=== PATIENT | male | born 1960 | race Caucasian/White ===

== ENCOUNTER → 2020-01-06 09:57 | Outpatient (CLI) | payer SELFPAY ==
[2020-01-06 12:27] LABS: Absolute Lymphocyte Count 2.34 X10^3/uL (0.83-4.51); Basophil# 0.07 X10^3/uL; Basophil% 1.2 % (0-1); Eosinophil# 0.19 X10^3/uL; Eosinophils% 3.2 % (0-5); Erythrocyte Sedimentation Rate < 1 mm/hr (0-20); Hematocrit 46.3 % (40-54); Hemoglobin 16.2 g/dL (13.0-16.5); Lymphocyte # 2.34 X10^3/ul (4.0); Lymphocyte % 38.9 % (19-41); Mean Corpuscular Hgb 31.6 pg (27.0-32.0); Mean Corpuscular Volume 90.3 fL (80-94); Mean Platelet Vol. 8.8 fl (6.2-12.0); Monocyte# 0.44 X10^3/uL; Monocyte% 7.3 % (0-10); NRBC Flagged by Analyzer 0 % (0-5); Neutrophil # 2.97 X10^3/uL (2.7-7.7); Neutrophil % 49.2 % (47-70); Platelet Count 224 K/mm3 (150-450); RBC Distribution Width CV 13.2 % (11.6-14.6); RBC Distribution Width SD 43.3 fl (35.1-43.9); Red Blood Count 5.13 M/mm3 (4.6-6.2)
[2020-01-06 12:30] LABS: ALB/GLOB Ratio 1.3 RATIO (0.9-2.4); AST(SGOT) 24 U/L (15-37); Alanine Aminotransfer ALT/SGPT 41 U/L (16-61); Alkaline Phosphatase 69 U/L (45-117); Anion Gap 5 (5-15); BUN 16 mg/dL (7-18); BUN/Creat Ratio 20.6 RATIO (10-20); CRP < 2.90 mg/L (0.0-3.0); Calcium,Total 8.9 mg/dL (8.5-10.1); Chloride 104 mmol/L (98-107); Creatinine, Serum 0.78 mg/dL (0.70-1.30); EST Glomerular Filtration Rate 109 mL/min (>60); Est Glom Filt Rate - Afr Amer 132 mL/min (>60); Glucose 95 mg/dL (74-106); Potassium 3.8 mmol/L (3.5-5.1); Rheumatoid Factor < 10.0 IU/mL (<15); Sodium Level 137 mmol/L (136-145)
[2020-01-06 12:55] LABS: Hepatitis B Surface Antibody Non-Reactive; Hepatitis B Surface Antigen Non-Reactive (Nonreactive); Hepatitis C Antibody Non-Reactive (Nonreactive)
[2020-01-06 15:06] LABS: Color, Urine Yellow (Yellow); Glucose, Dipstick Normal (Normal); Ketone-Dipstick Negative (Negative); Leukocyte Esterase-Dipstick Negative /ul (Negative); Nitrite-Dipstick Negative (Negative); Occult Blood-Urine Negative /ul (Negative); Protein-Dipstick Negative (Negative); Specific Gravity, Urine 1.015 (1.002-1.030); Urine Bilirubin Dipstick Negative (Negative); Urine Clarity Clear (Clear); Urine Urobilinogen Normal (Normal); Urine pH 6.5 (5.0 - 8.0)
[2020-01-06 15:15] LABS: Protein, Urine (Random) 11.1 mg/dL (<11.9); Protein:Creat Ratio 95 mg/g CRE (0-200)
[2020-01-07 14:42] LABS: ANTINUCLEAR ANTIBODIES DIRECT Negative (Negative)
[2020-01-09 04:26] LABS: CCP IgG Antibodies 5 units (0-19); Hepatitis B Core AB IgM Negative (Negative)
== END ==
PROVIDERS: Referring Provider Internal Medicine Rheumatology; Visit Provider Internal Medicine Rheumatology
DX: M06.4 Inflammatory polyarthropathy (principal); M35.2 Behcet's disease; H54.62 Unqualified visual loss, left eye, normal vision right eye; Q66.70 Congenital pes cavus, unspecified foot
CPT/HCPCS: 36415; 80053; 81002; 82570; 84156; 85025; 85652; 86038; 86140; 86200; 86431; 86705; 86706; 86803; 87340

== ENCOUNTER → 2023-01-10 | Outpatient (CLI) | payer SELFPAY, OTHER ==
--- NOTE | 2023-01-10 08:09 | MRI_ITS ---
STUDY: MR PELVIS WITH T WITHOUT CONTRAST REASON FOR EXAM: Male, 62 years old. ELEVATED PSA 12/26/22 14.03 -- PSA 12/26/22 14.03 TECHNIQUE: Standardized fat and water weighted pulse sequences were obtained in all 3 orthogonal planes, pre-and post contrast administration. Diffusion imaging obtained with ADC. 17CC IV CLARISCAN was administered for the contrast portion of the examination. COMPARISON: None. FINDINGS: Prostate 4.9 x 3.8 x 4.0 cm (39ml). Mild diffuse central gland enlargement with heterogeneous T2 signal. No overt diffusion restriction. Peripheral zone is mildly heterogeneous on T2 without discrete hypointense lesion. No focal diffusion restriction is seen. Heterogeneous enhancement with scattered areas of mild linear hyperenhancement. Retroprostatic angles are normal in appearance. Unremarkable seminal vesicles. Bladder is nondistended with normal wall signal. No adenopathy is appreciated within the imaged pelvis. Small fat-containing inguinal hernias with trace amount of fluid in the left inguinal canal. No acute osseous finding. MRI/Pelvis W/WO Contrast IMPRESSION: Prostatic enlargement without focal suspicious mass, overall PI-RADS 2 Electronically Signed: Samuel Guillen MD at 10:15 EDT ,
[2023-01-10 08:48] LABS: CREATININE FINGERSTICK < 0.9 mg/dL (0.70-1.30); EGFR FINGERSTICK > 60.0000 mL/min (>60)
== END | disposition home or self-care (01) ==
PROVIDERS: PCP Family Medicine; Referring Provider Urology; Visit Provider Urology
DX: R97.20 Elevated prostate specific antigen [PSA] (principal)
CPT/HCPCS: 72197; A9575

== ENCOUNTER → 2023-07-10 | Outpatient (CLI) | payer OTHER, SELFPAY ==
--- NOTE | 2023-07-10 | IMM_PTH ---
PATHOLOGY RESULTS PATIENT: LORI MULLEN LOC: [facility] U#:[id number] AGE/SX: 63/M ROOM: RE07/10/[address]: Dr. Mihai Sesay MD : 1960 BED: DIS: 07/10/2023 SPEC #: [id number] RECD: 07/12/23 14:01 STATUS: MARANDA REQuinn #: [id number] MAYE: 07/10/23 00:[address]: Mihai Sesay DEPT: IMMUNOHISTOCHEMISTRY RECD BY: Tatiana Queen ENTERED: 07/12/23 14:02 SP TYPE: IMMUNO OTHR DR: Dr. Musa Bingham, Tissues: PROSTATE RIGHT PROSTATE LEFT Procedures: 34BE12 (add) P40 (add) 34BE12 (initial) PHYSICIAN & INSTITUTION [place] [id number] SPECIMEN INFORMATION: Tissue Source: C - Right prostate, base, core biopsy, E - Left prostate, mid, core biopsy Clinical Info: Elevated PSA Specimen Number: [id number] C & E CPT code: 98861, 55192 x3 METHODOLOGY: Deparaffinized sections of prefer/formalin-fixed tissue or PAP/DQ stained slides are incubated with monoclonal/polyclonal antibodies/oligonucleotide probes. Localization is made via biotin free immunoperoxidase method. Appropriate controls are performed and reacted as expected. Results on target cell population are indicated in the following table: RESULTS: ANTIBODY / CLONE RESULT Block C P40 (BC28) negative, focal 34BE12 (34BE12) negative, focal Block E P40 (BC28) negative, focal 34BE12 (34BE12) negative, focal These tests were developed and their performance characteristics determined by [facility]. They may not have been cleared or approved by the U.S. Food and Drug Administration. The FDA has determined that such clearance or approval is not necessary. The above immunohistochemical/dualISH markers are ordered and reviewed by the Pathologist. INTERPRETATION: C. Right prostate, base, core biopsy: Consistent with focal atypical small acinar proliferation. E. Left prostate, mid, core biopsy: Consistent with focal atypical small acinar proliferation. AM:alan 07/13/2023
--- NOTE | 2023-07-10 | PROSBIL_PTH ---
PATHOLOGY RESULTS PATIENT: LORI MULLEN LOC: [facility] U#:[id number] AGE/SX: 63/M ROOM: RE07/10/[address]: Dr. Mihai Sesay MD : 1960 BED: DIS: 07/10/2023 SPEC #: [id number] RECD: 07/11/23 09:56 STATUS: MARANDA [place] #: [id number] MAYE: 07/10/23 00:[address]: Mihai Sesay DEPT: SURGICAL PATHOLOGY RECD BY: Denae Doyle ENTERED: 07/11/23 09:57 SP TYPE: PROST BX HUGH DR: Dr. Musa Bingham DO Tissues: PROSTATE RIGHT PROSTATE RIGHT PROSTATE RIGHT PROSTATE LEFT PROSTATE LEFT PROSTATE LEFT Procedures: PROSTATE BX HEADER OPERATION: Prostate biopsy PRE-OP DIAGNOSIS: Elevated PSA TISSUE SUBMITTED: A - Right apex, B - Right mid, C - Right base, D - Left apex, E - Left mid, F - Left base MICROSCOPIC DIAGNOSIS A. Right prostate, apex, core biopsy: Adenocarcinoma. [place] grade: 7 (3+4) Cores involved: 2 out of 2 cores Tissue involved: 55% Greatest tumor length: 8.5 millimeters B. Right prostate, mid, core biopsy: Focal high-grade prostatic intraepithelial neoplasia (HGPIN). Glandular atrophy and minimal chronic inflammation. C. Right prostate, base, core biopsy: Focal atypical small acinar proliferation. See comment. D. Left prostate, apex, core biopsy: Benign prostatic tissue. E. Left prostate, mid, core biopsy: Focal atypical small acinar proliferaton Mild chronic inflammation with focal acute inflammation. See comment. F. Left prostate, base, core biopsy: Focal high-grade prostatic intraepithelial neoplasia (HGPIN). Mild chronic inflammation. AM:alan 07/12/2023 COMMENT C & E. Immunohistochemistry ([id number]) supports the above diagnosis. Case has been reviewed in consultation with Dr. Lind who concurs with the above diagnosis. IDC:AM MICROSCOPIC DESCRIPTION Slides are reviewed. GROSS DESCRIPTION A - Received is one container designated prostate, right apex. The specimen consists of two elongated fragments of light davis-white soft tissue measuring 1.2 and 1.4 cm in length and 0.1 cm in diameter. The specimen is totally submitted in one cassette. B - Received is one container designated prostate, right mid. The specimen consists of two elongated fragments of light davis-white soft tissue measuring 1.0 and 2.0 cm in length and 0.1 cm in diameter. The specimen is totally submitted in one cassette. C - Received is one container designated prostate, right base. The specimen consists of two elongated fragments of light davis-white soft tissue measuring 0.8 and 1.2 cm in length and 0.1 cm in diameter. The specimen is totally submitted in one cassette. D - Received is one container designated prostate, left apex. The specimen consists of one elongated fragment of light davis-white soft tissue measuring 0.7 cm in length and 0.1 cm in diameter. The specimen is totally submitted in one cassette. E - Received is one container designated prostate, left mid. The specimen consists of two elongated fragments of light davis-white soft tissue measuring 0.6 and 0.8 cm in length and 0.1 cm in diameter. The specimen is totally submitted in one cassette. F - Received is one container designated prostate, left base. The specimen consists of two elongated fragments of light davis-white soft tissue measuring 0.7 and 1.0 cm in length and 0.1 cm in diameter. The specimen is totally submitted in one cassette. / SJ:rg 07/11/2023 TC:0 CPT: 62108 x6
== END | disposition home or self-care (01) ==
LOC: LABSPEC 16:08
PROVIDERS: PCP Family Medicine; Referring Provider Urology; Visit Provider Urology
DX: C61 Malignant neoplasm of prostate (principal); N42.89 Other specified disorders of prostate
CPT/HCPCS: 88305; 88341; 88342; G0416

== ENCOUNTER → 2023-07-20 | Outpatient (CLI) | payer SELFPAY, OTHER ==
--- NOTE | 2023-07-20 07:43 | NM_ITS ---
CLINICAL: 63-year-old male with history of primary prostate carcinoma. WHOLE BODY 99m Tc MDP RADIONUCLIDE BONE SCINTIGRAPHY COMPARISON: CT of the abdomen-pelvis report 07/20/2023 FINDINGS: Following the intravenous administration of 25.3 mCi of 99m Tc MDP, whole body bone images reveal: 1. Increased tracer uptake is defined in the acromioclavicular and sternoclavicular compartments of both shoulders, the bilateral elbows, the right knee, both hands. 2. The remaining skeletal structures are scintigraphically unremarkable with normal-appearing renal images and urinary bladder activity identified. NM/Bone Scan Whole Body IMPRESSION: 1. The increase in radiotracer defined in the bilateral shoulder and elbow articulations, the right knee, the hands bilaterally is commensurate with degenerative arthrosis. 2. There is no definitive scintigraphic evidence of diffuse axial skeletal metastatic disease on the current examination. Electronically Signed: Moody Kenny DO at 10:25 EST ,
--- NOTE | 2023-07-20 12:17 | CT_ITS ---
EXAM: CT ABDOMEN AND PELVIS WITH INTRAVENOUS CONTRAST CLINICAL INDICATION: Malignant neoplasm of prostate TECHNIQUE: Helically acquired images were obtained of the abdomen and pelvis with intravenous contrast. This CT exam was performed using one or more of the following dose reduction techniques: automated exposure control, adjustment of the mA and/or kV according to patient size, and/or use of iterative reconstruction technique. CONTRAST: isovue 370 100 ml COMPARISON: No relevant prior studies available. FINDINGS: LOWER THORAX: Unremarkable. Lung bases are clear. No cardiomegaly. No significant pericardial effusion. ABDOMEN: LIVER: Unremarkable. Homogeneous. No focal mass. GALLBLADDER AND BILE DUCTS: Unremarkable. No calcified gallstones. No gallbladder distention or wall edema. No intra- or extrahepatic biliary ductal dilation. PANCREAS: Unremarkable. No focal cystic or solid mass. SPLEEN: Unremarkable. Normal size without focal cystic or solid mass. ADRENALS: Unremarkable. No nodules. KIDNEYS AND URETERS: Unremarkable. Normal renal size and position. No hydronephrosis. STOMACH AND BOWEL: Unremarkable. No stomach or bowel distention. No focal inflammatory change. PELVIS: APPENDIX: No evidence of acute appendicitis. BLADDER: Unremarkable. REPRODUCTIVE: Unremarkable as visualized. No mass. ABDOMEN and PELVIS: INTRAPERITONEAL SPACE: Unremarkable. No ascites or other fluid collection. No free air. BONES/JOINTS: Unremarkable. No suspicious lytic or blastic abnormality. SOFT TISSUES: Unremarkable. No discrete abdominal or pelvic wall hernia. VASCULATURE: Unremarkable. Abdominal aorta is normal in caliber. LYMPH NODES: Unremarkable. No enlarged lymph nodes. CT/Abdomen/Pelvis W IV Cont ONLY IMPRESSION: Negative CT of the abdomen and pelvis with intravenous contrast. Electronically Signed: Johanny Dey MD at 19:08 EST Reading Location ID and State: [id number] / Tel , Service support ,
[2023-07-20 12:51] LABS: CREATININE FINGERSTICK < 1.0 mg/dL (0.70-1.30); EGFR FINGERSTICK > 60.0000 mL/min (>60)
== END | disposition home or self-care (01) ==
PROVIDERS: PCP Family Medicine; Referring Provider Urology; Visit Provider Urology
DX: C61 Malignant neoplasm of prostate (principal)
CPT/HCPCS: 74177; 78306; A9503; Q9967

== ENCOUNTER 2023-08-29 05:50 | Day surgery (SDC) | payer SELFPAY, OTHER ==
--- NOTE | 2023-08-23 12:18 | EKG12_ITS ---
Test Reason : PRE-OP Blood Pressure : / mmHG Vent. Rate : 056 BPM Atrial Rate : 056 BPM P-R Int : 180 ms QRS Dur : 096 ms QT Int : 402 ms P-R-T Axes : 050 -25 043 degrees QTc Int : 387 ms Sinus bradycardia Otherwise normal ECG Confirmed by JOSE CARLSON, CONOR ([id number]), photo editor MAE LOCO ([id number]) on 08/24/2023 6:18:08 AM Referred By: Mihai Sesay Confirmed By:CONOR GARCIA MD
[2023-08-23 13:22] LABS: Hematocrit 47.6 % (40-54); Hemoglobin 16.3 g/dL (13.0-16.5); Mean Corp Hgb Conc 34.2 g/dL (32-36); Mean Corpuscular Hgb 30.4 pg (27.0-32.0); Mean Corpuscular Volume 88.6 fL (80-94); Mean Platelet Vol. 8.7 fl (6.2-12.0); Platelet Count 249 K/mm3 (150-450); RBC Distribution Width CV 12.9 % (11.6-14.6); RBC Distribution Width SD 41.7 fl (35.1-43.9); Red Blood Count 5.37 M/mm3 (4.6-6.2); White Blood Count 6.6 K/mm3 (4.4-11.0)
[2023-08-29] VITALS (14 sets, daily range): BP systolic 90–117; BP diastolic 52–73; PULSE 52–75; RESP 15–18; TEMP 36.1–36.7; O2SAT 95–99; BMI 28.3; BMI 28.1
--- NOTE | 2023-08-29 | PROST_PTH ---
PATIENT: LORI MULLEN [place] [facility][id number] AGE/SX: 63/M ROOM: RE08/29/[address]: Dr. Mihai Sesay MD : 1960 BED: DIS: 08/30/2023 SPEC #: [id number] RECD: 08/29/23 13:14 STATUS: MARANDA [place] #: [id number] MAYE: 08/29/23 00:[address]: Mihai Sesay DEPT: SURGICAL PATHOLOGY RECD BY: Jack Gale ENTERED: 08/29/23 13:14 SP TYPE: PROSTATE OTHR DR: Dr. Musa Bingham DO Tissues: A - Lymph node of pelvis, NOS B - Lymph node of pelvis, NOS C - Prostate, NOS Procedures: Surgery Specimen Level V Surgery Specimen Level HEADER OPERATION: Laparoscopic robotic radical prostatectomy PRE-OP DIAGNOSIS: Prostate cancer TISSUE SUBMITTED: A- right pelvic lymph node, B- Left pelvic lymph node, C- Prostate MICROSCOPIC DIAGNOSIS A. Right pelvic lymph node, regional resection: One lymph node, negative for metastatic carcinoma. B. Left pelvic lymph node, regional resection: Six out of six lymph node negative for metastatic carcinoma. C. Prostate, radical prostatectomy: Prostatic adenocarcinoma. See cancer summary in comment section. COMMENT PROSTATE CANCER (RADICAL) SUMMARY: Procedure: Radical Prostatectomy Prostate Size: Weight: 48.9 gm Size: 4.5 cm transversely, 3.5 cm anterior-posteriorly and 3.5 cm craniocaudally Histologic Type: Adenocarcinoma Histologic Grade: Grade group - 3, [place] score (4+3=7) Tertiary Pattern: 5 Intraductal Carcinoma: Not identified Tumor Quantitation: Estimated percentage of prostate involved by tumor: ~10% Tumor size: The tumor involves apical, mid and basal portions of the right prostate lobe and measures approximately 3.0 x 1.3 x 1.2 cm (measured microscopically). The tumor is present in discontinuous manner. Left lobe of prostate shows focal high grade prostatic intraepithelial neoplasia (HGPIN). Extraprostatic Extension: Not identified Urinary Bladder Neck Invasion: Not identified Seminal Vesicle Invasion: Not identified Lymphvascular Invasion: Not identified Perineural Invasion: Present, frequent Margins: Margin involved by invasive carcinoma Size of positive margin: 1.0 x 0.8cm Focality - unifocal. Location of positive margin- Right apical Gelasian pattern in the positive margin- Pattern 4+3=7 Regional Lymph Nodes: Number of lymph nodes involved by carcinoma: 0 Total number of lymph nodes examined: 7 Treatment Effect: No know presurgical therapy Additional Pathologic Findings: - Focal high-grade prostatic intraepithelial neoplasia (HGPIN). - Benign prostatic hyperplasia. Clinical History: Please make reference to previous specimen ([id number]) right prostate apex, core biopsy with diagnosis of adenocarcinoma and right prostate mid with diagnosis of Focal high-grade prostatic intraepithelial neoplasia (HGPIN) and right prostate base with diagnosis of focal atypical small acinar proliferation (KINA) and left prostate mid with diagnosis of Focal atypical small acinar proliferation (KINA) and left prostate base with diagnosis of Focal high-grade prostatic intraepithelial neoplasia (HGPIN). PATHOLOGIC STAGE: pT2 pN0 pMx The above summary is in compliance with [employer] (CAP) Cancer Protocols Checklist and [place] [employer] Committee on Cancer (AJCC), Staging Manual, 8th Ed. Case has been reviewed in consultation with Dr. Lind who concurs with the above diagnosis. IDC:AM MICROSCOPIC DESCRIPTION Slides are reviewed. GROSS DESCRIPTION A. Received in fixative is one container labeled with the patient's name and designated Right pelvic lymph node. The specimen consists of a piece of adipose tissue measuring 2.5 x 2.0 x 1.0cm. One nodule consistent with possible lymph node is identified. The specimen is dissected and submitted entirely in two cassettes. [facility] 08/29/23 B. Received in fixative is one container labeled with the patient's name and designated Left pelvic lymph node. The specimen consists of a piece of adipose tissue measuring 3.0 x 2.5 x 0.5cm. One possible lymph node is identified. The entire specimen is submitted in two cassettes as follows: 1- one lymph node, 2- rest of the specimen. [facility] 08/29/23 C. Received in fixative is one container labeled with the patient's name and designated Prostate. The specimen consists of a radical prostatectomy specimen consisting of prostate and bilateral seminal vesicles and vas deferens. The specimen weighs 48.9 gm. The prostate measures 4.5 cm transversely, 3.5 cm anterior-posteriorly and 3.5 cm craniocaudally. The right seminal vesicle measures 2.5 x 1.0 x 0.5 cm. The left seminal vesicle measures 3.0 x 1.5 x 0.5 cm. Vas deferens are not identified grossly. The prostate is inked as follows: anterior surface - yellow, posterior surface - black, right lateral surface - blue, left lateral surface - green. The bilateral seminal vesicles and vas deferens are inked as follows: Posterior surface bilateral seminal vesicle and vas deferens - black, anterior surface right seminal vesicle and vas deferens - blue and anterior left seminal vesicle and vas deferens - green. Sections do not reveal any obvious mass lesions. Forming Process Line Worker sections are submitted in 19 cassettes as follows: 1 - right seminal vesicle, 2 - left seminal vesicle, 3 - apical (urethral) margin, enface, 4&5 - bladder neck and basal portion of prostate margin, enface, 6-9 - apical portion prostate, 10-13 - middle portion prostate, 14-19 - basal portion prostate. IMELDA: 08/30/23 TC:0 CPT: 32341, 13579 x2
[2023-08-29] MEDS: Lactated Ringers 1,000 ML 15 ML IV (06:49)
[2023-08-29] MEDS: Cefazolin 2 GM in 0.9% Normal Saline (100mL Bag) 100 ML IV (07:40)
[2023-08-29] MEDS: Bupivacaine Mpf 0.5% 30 ML VIAL (11:03)
--- NOTE | 2023-08-29 11:19 | PCM.HP.STD ---
HPI - General General Date of Admission: 08/29/23 HPI Narrative LORI MULLEN, is a 63 M who presents presents for a radical prostatectomy [facility] Medical History (Updated 08/29/23 @ 11:[address] Mihai Sesay MD) Behcet's disease Cancer Former smoker Prostate disease Wears dentures Wears glasses Wears hearing aid Home Medications leucovorin calcium 5 mg tablet 5 mg PO TU 08/21/23 [History Last Taken 08/28/23] methotrexate sodium 2.5 mg tablet 12.5 mg PO MO 08/21/23 [History Last Taken 08/27/23] ciprofloxacin HCl 500 mg tablet (Cipro) 500 mg PO BID #14 tabs 08/29/23 [Rx Last Taken Unknown] docusate sodium 100 mg capsule (Colace) 100 mg PO BID #20 caps 08/29/23 [Rx Last Taken Unknown] oxycodone 5 mg tablet 5 mg PO Q6H PRN pain 7 days #14 tabs 08/29/23 [Rx Last Taken Unknown] Allergy/AdvReac Type Severity Reaction Status Date / Time No Known Allergies Allergy Verified 08/29/23 06:17 Surgical History (Updated 08/21/23 @ 15:10 by Ronda Mays) Hx of eye surgery Hx of prostate biopsy Social History Smoking Status: Former smoker Vital Signs Vital Signs Vital Signs: 08/29/23 06:17 08/29/23 06:17 Temperature 97.2 F L Temperature Source Temporal Pulse Rate 55 L Respiratory Rate 16 Respiratory Pattern Normal Blood Pressure 117/67 Blood Pressure Mean 83 Blood Pressure Source Monitor Blood Pressure Position Semi-Fowlers Blood Pressure Location Right Arm Pulse Ox 97 Oxygen Delivery Method Room Air Weight Weight: 87 kg Body Mass Index (BMI) 28.3 Results Lab / Micro Data 08/23/23 12:34
--- NOTE | 2023-08-29 11:20 | OP.PCM_ITS ---
Report of Operation Date of Procedure: 08/29/23 Pre-Operative Diagnosis: Prostate cancer Post-Operative Diagnosis: The same Surgery/Procedure Performed:: Laparoscopic robotic assisted radical prostatectomy with bilateral pelvic lymph node dissection, suture suspension of the urethra Description of Surgical Findings:: Patient presented to the hospital for treatment of his prostate cancer with radical prostatectomy. In the preoperative setting we discussed the options of management for his prostate cancer including active surveillance, radiation treatments, radioactive seeds, and radical robotic prostatectomy. We discussed the side effects of surgery including the potential to lose erections. We discussed the potential to have bladder control problems with stress incontinence which can be temporary or permanent. We discussed the risk of the surgery including the risk of general anesthetic, risk of bleeding, risk of infection, and risk of formation of hernia either incisional hernia or inguinal hernia. After long discussion with the patient the preoperative setting and also reviewed this in the preop area patient signed the consent form and we proceeded with a radical prostatectomy. Patient was taken back to the operating room he was identified, time out procedure was performed and he was placed supine on the table he underwent general anesthesia with intubation. The abdomen was shaved prepped and draped in usual sterile fashion as well as the penis and testicles. A 16 Ecuadorean catheter was placed into the bladder with clear return of urine. I then made an incision in the umbilicus and dissected down to the fascia advance a Veress needle into the peritoneal cavity and insufflated the peritoneal cavity with CO2 gas. I then placed a 12 mm trocar above the umbilicus. I then visualized the placement of the rest of the trochars, I placed a right arm robotic trocar, and air seal trocar, a suction port 5 mm trocar. And on the left side I placed 2 robotic arms. Once all the trochars were in placed the patient was put in steep Trendelenburg. And the robot was docked the arms were docked and then I placed the 0 degree camera through the robotic arm and also used a 30 degree camera during certain parts of the case. I used scissors in the right arm, prograsp in the third arm, and a bipolar in the second arm. Initial dissection was to free the sigmoid colon off the lateral wall this was done by meticulously dissecting off the peritoneum and the sigmoid colon off the left lateral wall. This then allowed the prograsp to retract the sigmoid colon out of the pelvis. I then went below the bladder and identified the vas deferens incised the peritoneum over the vas deferens and traced the vas deferens below the bladder to the prostate and identified the right and left vasa deferens. Below behind the vas deferens then the seminal vesicles were identified. I then dissected the seminal vesicle free using pinpoint electrocautery and then we identified the other seminal vesicle and then dissected this using pinpoint electrocautery I then elevated the vas deferens and several vesicles off the prostate and was able to sweep the Denonvilliers' fascia off the prostate posteriorly all the way up to the apex of the prostate. Working laterally I made sure I went as lateral as possible to sweep the Denonilliers' fascia off the posterior aspect of the prostate and worked my way back, I then transected the vas deferens and the left and right side the seminal vesicles were then dissected free. And then I pulled out of the pelvis. At this point the bladder was dropped creating the space of Retzius with the bladder on traction with the fourth arm. Using electrocautery I dissected in the anterior peritoneal fascia and then created the space of Retzius dissecting towards the prostate. The pelvic lymph node dissection was then performed both side. Rhe right pelvic lymph nodes the nodes that were taken on the right side extended from the right iliac artery lateral pelvic sidewall up to the junction of the artery and the lymph nodes and down to the obturator nerve and then also below the extractor operator helper nerve all the lymph nodes were removed during to remove those lymph nodes we used clips and electrocautery to control small blood vessels and also the control lymphatic. I then went to the left side and again did an extensive lymph node dissection starting of the left iliac artery extending the left iliac vein on the lateral sidewall down to the obturator nerve and the left side beyond the extractor operator helper nerve down further behind it cleaning out all the lymphatic tissue all this tissue was sent off as a specimen we use clips and electrocautery during the dissection. At the end we cleaned out all the lymphatic tissue on the right pelvic wall and all the lymphatic tissue in the left pelvic wall. The prostate was then cleaned of the fat over the prostate and the fourth arm was used to retract the bladder and place traction. I then identified the endopelvic fascia that was overlying the prostate on the right side I incised endopelvic fascia and wwept the levator muscles off the prostate all the way to the apex on the right side, I then worked my way anterior to the prostate then transected to the puboprostatic ligament and the underlying dorsal vein complex was not injured. I then went to the other side and identified the endopelvic fascia in the left side incised in a fashion the left side and swept the levator muscles off the prostate on the left side all the way up to the apex the puboprostatic ligament on the left side was then dissected and transected I then freed up the fascia overlying the dorsal vein complex. I then used the prograsp to encircled the dorsal vein complex with the prograsp and then switched over to the right and left needle cdl flatbed truck driver and suture ligated the dorsal vein complex above the prograsp. The prograsp was then placed back in the bladder and put back on traction I then identified the junction between the bladder and the prostate and dissected down between the bladder and the prostate untilI came across the catheter we then dissected posteriorly to the bladder and prostate to free the prostate and the bladder off each other and the muscles between the bladder and the prostate was then cauterized to free up the bladder. I then went on top of the prostate and identified the endopelvic fascia on top of the prostate this was incised all the way to the apex and then we swept the endopelvic fascia off the prostate laterally and then identified the plane between endopelvic fascia and the prosthetic pseudocapsule and swept the fascia laterally until reaching the course of the neurovascular bundles and then released the neurovascular bundles off the prostate laterally all the way back in a retrograde fashion back to the junction of the pedicles then the prostate was placed on traction with the fourth arm pulling the prostate laterally identified the pedicle to the prostate between the seminal vesicles and the and the neurovascular bundle and this was taken using sequential small hemolocks. After the pedicle was taken the I then dissected underneath the prostate sweeping the neurovascular bundle off the prostate we able to follow the nice smooth plane between the neurovascular bundle and the pseudocapsule all the way to the apex once this was identified we swept this up all the way up to the apex and there was perfect nerve sparing on the right side. Then went to the left side the prostate identified the endopelvic fascia over the left side of the prostate I incised the endopelvic fascia all the way to the apex and then swept this off laterally I then released the neurovascular bundles on the left side of the prostate sweeping him off the prostate laterally I then elevated the prostate up up with the prostate and traction identified the pedicle to the prostate on the left side and then the pedicles taken with sequential Hem-o-sil clips I then was able to dissected the neurovascular bundle off the left pos terior aspect the prostate this was a perfect dissection all the way up on the left side following the pseudocapsule all the way up the left side until we reached the apex of the prostate. After the both the neurovascular bundles has been swept off the posterior to the prostate I then went above and transected the dorsal vein complex there was minimal to no bleeding but then dissected down to the urethra and circumfencial dissected around the urethra I then switched the right and left arm with the needle drivers and I suture-ligated the dorsal vein complex again just to ensure that there was no bleeding from the dorsal vein complex. I then transected through the urethra with scissors and the prostate was then freed and released off the prostate bed and put an Endo Catch bag. At this point the bladder neck was reconstructed and then an anastomosis was performed between the prostate and the bladder with a 3 oh V-Loc stitch in a running fashion starting from the bladder neck at the 6 o'clock position working to the 12 o'clock position with continuous stitches to complete a perfect anastomosis between the bladder and the prostate. I then placed a new catheter into the bladder, an 18 [place]cu[place] tip catheter flushed the bladder and there was no leakage from the anastomosis I put 10 cc in the balloon and pulled it up pulled back gently. I then ensured that there was no bleeding from the dorsal vein complex no bleeding from the neurovascular bundles FloSeal was placed as necessary once hemostasis was ensured and adequate then I placed the bladder back in position in the pelvis the prostate was exchanged to the camera port I closed the air seal port with a 10 12 Tristian Reynolds stitch. And the extracted the prostate through the umbilicus. The robot was undocked all the ports were removed under direct visualization then closed the extraction site with 0 Vicryl with a CT1 needle once the extraction site was closed. I then closed all the incision with subcuticular stitches with 4-0 Monocryl and then bandages were placed on the incisions catheter was flushed to make sure it was draining well there was no clots and it was crystal clear patient's anesthetic was reversed he was extubated and taken back to the PACU in stable condition all the needles and sponges and instruments were accounted for. Blood loss was minimal and the drain was a 18 Ecuadorean Curtis catheter. No other surgical drain was left. I was present during the entire case. Surgeon: Mihai Sesay Type of Anesthesia: General Drains: 18 Ecuadorean catheter [place] tip Estimated Blood Loss (mL): 350 cc Admit VTE Documentation VTE Present on Admission: No VTE Mechan Device Prophylaxis: SCD's VTE Pharm Prophylaxis ordered?: No
--- NOTE | 2023-08-29 11:20 | PCM.DC ---
Discharge Instructions Diet Discharge Diet: No restrictions Activity Discharge Activity: Return to Normal Activity and May Not Drive (while taking narcotic pain medications.) Dressing / Incision Call your doctor if you observe: Fever of 101 or Higher Cleanse incision/area with: Soap & Water Catheter: Curtis to leg bag and Curtis to large bag Drain: [place] Follow Up Care Please Follow Up With: Mihai Sesay MD When: Call [phone] for an appointment Test Results: Test results from this visit will be discussed in further detail at your follow-up appointment, if applicable. Discharge Plan Admission Primary Reason for Your Visit: Radical prostatectomy Attending Provider: Mihai Sesay Primary Care Provider: Musa Bingham Discharge Orders/Prescriptions Prescriptions: New ciprofloxacin HCl [Cipro] 500 mg tablet 500 mg PO BID Qty: 14 0RF docusate sodium [Colace] 100 mg capsule 100 mg PO BID Qty: 20 0RF oxycodone 5 mg tablet 5 mg PO Q6H PRN (Reason: pain) 7 Days Qty: 14 0RF Continued methotrexate sodium 2.5 mg tablet 12.5 mg PO MO leucovorin calcium 5 mg tablet 5 mg PO TU Referrals / Follow Up: Mihai Sesay MD [Med Staff - Active Staff] - Musa Bingham DO [Primary Care Provider] - Disposition Disposition (needs filled in before D/C Order can be placed): Home, Self Care
[2023-08-29] MEDS: Lactated Ringers 1,000 ML 125 ML IV (13:16)
[2023-08-29] MEDS: Ketorolac 15 MG/ML Vial IV ×2 (13:17→18:27)
[2023-08-29] MEDS: Ciprofloxacin 400 MG/200 ML BAG 200 MG IV (15:08)
--- NOTE | 2023-08-29 15:51 | CHAPLAIN ---
Type of Pastoral Visit _x__ Initial Visit ___ Follow-up Visit ___ On-call Visit ___ General Patient Visit ___ Spiritual Assessment ___ Family Conference ___ Bereavement ___ Rapid Response ___ Code Blue ___ Other (describe below) Pastoral Care Referral From _x__ Patient ___ Family ___ Nurse ___ Physician ___ Business Liaison Officer ___ Thermite Bomb Loader ___ Other (describe below) Sacrament/Intervention _x__ Active listening ___ Anointing ___ Muslim ___ Bereavement ___ Communion _x__ Fiona exploration ___ _x__ Life review _x__ Prayer ___ Reconciliation ___ Sacrament of Sick _x__ Supportive presence ___ Wedding ___ Other (describe below) Pastoral Comments post op for patient; spouse is with him; pt admits to some concerns because my father had surgeries and it affected his mind afterwards; pt is relieved that I seem to be thinking clearly and do okay; pt needed assistance with his alarm on IV and RN was called for help; pt gives some life review and speaks of friends that are known in common; pt is welcoming of spiritual care and prayer; no other needs at this time
[2023-08-29] MEDS: Docusate Sodium 100 MG Capsule 200 MG PO (21:36)
[2023-08-30] MEDS: Lactated Ringers 1,000 ML 125 ML IV (00:11)
[2023-08-30] MEDS: Ketorolac 15 MG/ML Vial IV ×2 (00:11→06:25)
[2023-08-30 00:15] VITALS: BP 101/67; PULSE 55; RESP 15; TEMP 36.5; O2SAT 95
[2023-08-30 01:00] VITALS: RESP 15
[2023-08-30 04:08] VITALS: BP 114/62; PULSE 70; RESP 15; TEMP 36.6; O2SAT 95
[2023-08-30] MEDS: Ciprofloxacin 400 MG/200 ML BAG 200 MG IV (04:14)
[2023-08-30 07:15] VITALS: O2SAT 95
[2023-08-30 07:21] VITALS: BP 103/53; PULSE 56; RESP 18; TEMP 36.6; O2SAT 99
--- NOTE | 2023-08-30 07:21 | PCM.PN.GU ---
Subjective Subjective 63-year-old male status post robotic radical prostatectomy doing well up reading a newspaper pain is under control he can go home later this morning after he has had breakfast he can stay till after lunch but he has a son and daughter coming and wants to go home early which is fine so we will discharge him today. Follow-up in 2 weeks he will go home with a Curtis catheter to leg bag Objective Data Objective Data Vital Signs: Vital Signs Temp Pulse Resp BP Pulse Ox O2 Del Method O2 Flow Rate 97.8 F 70 15 114/62 95 Room Air 2 08/30/23 04:08 08/30/23 04:08 08/30/23 04:08 08/30/23 04:08 08/30/23 04:08 08/30/23 06:46 08/29/23 11:45 Oxygen Flow Rate (L/min) 2 Oxygen Delivery Method Room Air Weight: 83.915 kg Body Mass Index (BMI) 28.1 Intake & Output: Intake and Output for Last 24 Hours 08/28/23 08/29/23 08/30/23 23:59 23:59 23:59 Intake Total 2710 / 2710 1150 / 1150 Output Total 1150 / 1150 200 / 200 Balance 1560 / 1560 950 / 950 Lab / Micro Data 08/23/23 12:34
[2023-08-30 08:05] LABS: Hematocrit 37.3 % (40-54); Hemoglobin 13.3 g/dL (13.0-16.5); Mean Corp Hgb Conc 35.7 g/dL (32-36); Mean Corpuscular Hgb 31.6 pg (27.0-32.0); Mean Corpuscular Volume 88.6 fL (80-94); Mean Platelet Vol. 8.9 fl (6.2-12.0); Platelet Count 202 K/mm3 (150-450); RBC Distribution Width SD 42.2 fl (35.1-43.9); Red Blood Count 4.21 M/mm3 (4.6-6.2); White Blood Count 10.5 K/mm3 (4.4-11.0)
[2023-08-30] MEDS: Docusate Sodium 100 MG Capsule 200 MG PO (08:29)
[2023-08-30 08:32] LABS: Anion Gap 6 (5-15); BUN 16 mg/dL (7-18); BUN/Creat Ratio 20.2 RATIO (10-20); Calcium,Total 8.7 mg/dL (8.5-10.1); Chloride 107 mmol/L (98-107); Creatinine, Serum 0.79 mg/dL (0.70-1.30); EST Glomerular Filtration Rate 105 mL/min (>60); Est Glom Filt Rate - Afr Amer 127 mL/min (>60); Glucose 108 mg/dL (74-106); Potassium 3.8 mmol/L (3.5-5.1); Sodium Level 138 mmol/L (136-145)
--- NOTE | 2023-08-30 10:08 | CASEMGMT ---
BELLA CM into pt room, pt sitting on couch with at bedside. Pt states he feels comfortable with going home with the owens. Pt reports he is I in ADL's. He denies any homegoing needs.
== END 2023-08-30 10:48 | disposition home or self-care (01) ==
LOC: SDC 05:51 → AC 05:52 → MS3 12:30
PROVIDERS: Anesthesiology; PCP Family Medicine; Referring Provider Urology; Visit Provider Urology
PROC: 0VT04ZZ Resection of Prostate, Percutaneous Endoscopic Approach (ICD-10-PCS; CPT 55866; principal; 2023-08-29 07:10)
DX: C61 Malignant neoplasm of prostate (principal); Z87.891 Personal history of nicotine dependence; Z80.42 Family history of malignant neoplasm of prostate
CPT/HCPCS: 55866; 00865; 36415; 80048; 84153; 85027; 86850; 86900; 86901; 88307; 88309; 93005; 94668; 99252; J7120; A4216; G0463; J0744; J2405